=== PATIENT | female | born 1980 | race Asian ===

== ENCOUNTER 2018-10-12 09:50 | Emergency (ER) | payer OTHER ==
[~2018-10-12] VITALS: Ht 154.9 cm; Wt 81.8 kg
[~2018-10-12 09:50] MED LIST: BENZ0.5T44 PO; LEVO50 PO; LITH300C3 PO; NOCURR; RISP2TAB PO; ZIPR80CA2 PO
[2018-10-12] MEDS ORDERED: OLAN10TA3 PO (10:26)
[2018-10-12] MEDS ORDERED: LEVO1TAB PO (10:26)
[2018-10-12] MEDS ORDERED: DIVA-78 PO (10:26)
[2018-10-12] MEDS ORDERED: CHLO10 PO (10:26)
[2018-10-12] MEDS ORDERED: TRAZ-220 PO (10:26)
[2018-10-12] MEDS ORDERED: DIVA-76 PO (10:26)
[2018-10-12 10:58] LABS: BASOPHILS % (AUTO) 0.6 % (0.0-2.0); EOSINOPHILS % (AUTO) 1.1 % (1.0-6.0); HEMATOCRIT 40.5 % (36-46); HEMOGLOBIN 13.6 g/dL (12.0-16.0); LYMPHOCYTES # (AUTO) 2.6 K/uL (1.0-4.8); LYMPHOCYTES % (AUTO) 35.8 % (22.0-44.0); MEAN CORPUSCULAR HEMOGLOBIN 32.2 pg (26.0-34.0); MEAN CORPUSCULAR HGB CONC 33.7 G/dL (31.0-37.0); MEAN CORPUSCULAR VOLUME 95 fL (80-100); MONOCYTES # (AUTO) 0.7 K/uL (0.1-1.0); MONOCYTES % (AUTO) 9.2 % (2.0-9.0); NEUTROPHILS # (AUTO) 3.9 K/uL (1.8-7.7); NEUTROPHILS % (AUTO) 53.3 % (40.0-70.0); PLATELET COUNT (AUTO) 246 K/uL (150-450); RED BLOOD CELL COUNT(AUTO) 4.24 MIL/uL (4.00-5.20); RED CELL DISTRIBUTION WIDTH 13.4 % (11.5-14.5)
[2018-10-12 11:05] LABS: ANION GAP 7 mmol/L (8-16); CALCIUM, TOTAL 8.9 mg/dL (8.8-10.5); CARBON DIOXIDE 30 mmol/L (22-29); CHLORIDE 104 mmol/L (98-107); CREATININE 1.32 mg/dL (0.60-1.30); GLOMERULAR FILTR. RATE CALC 45 mL/min (>60); GLUCOSE,RANDOM 101 mg/dL (70-110); POTASSIUM 3.5 mmol/L (3.5-5.1); SODIUM SERUM 141 mmol/L (136-145); UREA NITROGEN, BLOOD 12 mg/dL (7-18)
[2018-10-12 11:16] LABS: ALANINE AMINOTRANSFERASE 34 U/L (12-78); ALBUMIN 3.5 g/dL (3.4-5.0); ALKALINE PHOSPHATASE 81 U/L (46-116); ASPARTATE AMINOTRANSFERASE 19 U/L (15-37); BILIRUBIN,TOTAL 0.2 mg/dL (0.1-1.0); HCG,QUANTITATIVE < 1 mIU/mL (0-6); LIPASE 96 U/L (73-393); TOTAL PROTEIN, SERUM 8.4 g/dL (6.4-8.2)
[2018-10-12 11:35] LABS: APPEARANCE,URINE CLOUDY (CLEAR); BILIRUBIN,URINE NEGATIVE (NEGATIVE); GLUCOSE, URINE (UA) NEGATIVE (NEGATIVE); KETONES,URINE NEGATIVE (NEGATIVE); LEUKOCYTE ESTERASE ,URINE SMALL (NEGATIVE); NITRATE,URINE POSITIVE (NEGATIVE); OCCULT BLOOD,URINE SMALL (NEGATIVE); PROTEIN,URINE NEGATIVE (NEGATIVE); UROBILINOGEN,URINE 0.2 mg/dL (<=1.0)
[2018-10-12 11:48] LABS: BACTERIA,URINE Moderate /HPF (None Seen); RBC,URINE 0-2 /HPF (0-2); SQUAMOUS EPITHELIAL CELL,UR Moderate /LPF (None Seen)
[2018-10-12] MEDS ORDERED: CEPHALEXIN MONOHYDRATE 500 MG CAPSULE PO ONE (12:00)
[2018-10-12 12:05] VITALS: BP 129/96
== END 2018-10-12 12:35 | disposition home or self-care (01) ==
LOC: EMS 09:51
DX: N39.0 Urinary tract infection, site not specified (principal)
CPT/HCPCS: 87086

== ENCOUNTER 2020-01-06 18:52 | Inpatient (IN) | payer OTHER ==
[~2020-01-06] VITALS: Ht 170.2 cm; Wt 66.6 kg
[~2020-01-06 18:52] MED LIST changes: +CHLO10 PO; +DIVA-76 PO; +DIVA-78 PO; +LEVO1TAB PO; -LITH300C3 PO; -NOCURR; +OLAN10TA3 PO; -RISP2TAB PO; +TRAZ-257 PO
[2020-01-06] MEDS ORDERED: SODIUM CHLORIDE 0.9% 2,300 ML IV ONE (19:15)
[2020-01-06] MEDS ORDERED: ACETAMINOPHEN 500 MG TABLET PO ONE (19:15)
[2020-01-06 19:30] LABS: BASOPHILS % (AUTO) 0.2 % (0.0-2.0); EOSINOPHILS % (AUTO) 0 % (1.0-6.0); HEMATOCRIT 29.2 % (36-46); LYMPHOCYTES % (AUTO) 5.1 % (22.0-44.0); MEAN CORPUSCULAR HEMOGLOBIN 33.1 pg (26.0-34.0); MEAN CORPUSCULAR HGB CONC 34.4 G/dL (31.0-37.0); MEAN CORPUSCULAR VOLUME 96 fL (80-100); MONOCYTES % (AUTO) 5.5 % (2.0-9.0); NEUTROPHILS # (AUTO) 16.8 K/uL (1.8-7.7); PLATELET COUNT (AUTO) 207 K/uL (150-450); RED BLOOD CELL COUNT(AUTO) 3.04 MIL/uL (4.00-5.20); RED CELL DISTRIBUTION WIDTH 14.3 % (11.5-14.5)
[2020-01-06 19:32] LABS: NEUTROPHILS % (AUTO) 89.2 % (40.0-70.0)
[2020-01-06 19:39] LABS: ANION GAP 1 mmol/L (8-16); CALCIUM, TOTAL 8.2 mg/dL (8.8-10.5); CARBON DIOXIDE 23 mmol/L (22-29); CHLORIDE 105 mmol/L (98-107); CREATININE 1.39 mg/dL (0.60-1.30); GLOMERULAR FILTR. RATE CALC 42 mL/min (>60); GLUCOSE,RANDOM 105 mg/dL (70-110); POTASSIUM 3.2 mmol/L (3.5-5.1); SODIUM SERUM 129 mmol/L (136-145); UREA NITROGEN, BLOOD 9 mg/dL (7-18)
[2020-01-06 19:48] LABS: LACTIC ACID 1.8 mmol/L (0.4-2.0)
[2020-01-06 19:50] LABS: B-TYPE NATRIURETIC PEPTIDE 41 pg/mL (0-100)
[2020-01-06 19:57] LABS: ALANINE AMINOTRANSFERASE 27 U/L (12-78); ALBUMIN 2.2 g/dL (3.4-5.0); ALKALINE PHOSPHATASE 72 U/L (46-116); ASPARTATE AMINOTRANSFERASE 21 U/L (15-37); BILIRUBIN,TOTAL 0.4 mg/dL (0.1-1.0); HCG,QUANTITATIVE < 1 mIU/mL (0-6); LIPASE 26 U/L (73-393); TOTAL PROTEIN, SERUM 5.8 g/dL (6.4-8.2)
[2020-01-06] MEDS ORDERED: ONDANSETRON HCL 4 MG/2 ML VIAL IVP PRN ×2 (20:00→21:45)
[2020-01-06] MEDS ORDERED: POTASSIUM CHLORIDE 10% 40 MEQ/30 ML LIQUID UDCUP PO ONE (20:00)
[2020-01-06] MEDS ORDERED: CefTRIAXone 1 GM/DEXTROSE 50 ML IV ONE (20:00)
[2020-01-06] MEDS ORDERED: ACETAMINOPHEN 325 MG TABLET PO PRN (20:00)
[2020-01-06] MEDS ORDERED: 0.9% SODIUM CHLORIDE 10 ML SYRINGE IVP PRN ×2 (20:00→21:45)
[2020-01-06 20:31] LABS: APPEARANCE,URINE CLEAR (CLEAR); BILIRUBIN,URINE NEGATIVE (NEGATIVE); GLUCOSE, URINE (UA) NEGATIVE (NEGATIVE); KETONES,URINE NEGATIVE (NEGATIVE); LEUKOCYTE ESTERASE ,URINE SMALL (NEGATIVE); NITRATE,URINE NEGATIVE (NEGATIVE); OCCULT BLOOD,URINE MODERATE (NEGATIVE); PROTEIN,URINE NEGATIVE (NEGATIVE); UROBILINOGEN,URINE 0.2 mg/dL (<=1.0)
[2020-01-06 20:48] LABS: BACTERIA,URINE None Seen /HPF (None Seen); SQUAMOUS EPITHELIAL CELL,UR Rare /LPF (None Seen)
[2020-01-06 20:55] LABS: INFLUENZA TYPE A NEGATIVE FOR TYPE A (NEGATIVE); INFLUENZA TYPE B NEGATIVE FOR TYPE B (NEGATIVE)
[2020-01-06] MEDS: TraZODone HCL 100 MG TABLET PO SCH (22:30)
[2020-01-06] MEDS: DIVALPROEX SODIUM 500 MG DR TABLET PO SCH (22:30)
[2020-01-06] MEDS: ZIPRASIDONE HCL 80 MG CAPSULE PO SCH (23:00)
[2020-01-06] MEDS: OLANZapine 10 MG TABLET PO SCH (23:00)
[2020-01-06 23:43] VITALS: BP 99/58
[2020-01-07] MEDS: SODIUM CHLORIDE 0.9% 1,000 ML IV SCH ×2 (00:07→18:36)
[2020-01-07] MEDS: HEPARIN SODIUM,PORCINE 5,000 UNITS/ML VIAL SQ SCH ×3 (00:10→16:57)
[2020-01-07 03:17] VITALS: BP 105/68
[2020-01-07 06:17] LABS: BASOPHILS % (AUTO) 0.2 % (0.0-2.0); EOSINOPHILS % (AUTO) 0.1 % (1.0-6.0); HEMATOCRIT 33.7 % (36-46); HEMOGLOBIN 11.2 g/dL (12.0-16.0); LYMPHOCYTES # (AUTO) 1.9 K/uL (1.0-4.8); LYMPHOCYTES % (AUTO) 7.5 % (22.0-44.0); MEAN CORPUSCULAR HEMOGLOBIN 32.4 pg (26.0-34.0); MEAN CORPUSCULAR HGB CONC 33.2 G/dL (31.0-37.0); MEAN CORPUSCULAR VOLUME 98 fL (80-100); MONOCYTES % (AUTO) 3.8 % (2.0-9.0); NEUTROPHILS # (AUTO) 22.8 K/uL (1.8-7.7); PLATELET COUNT (AUTO) 235 K/uL (150-450); RED BLOOD CELL COUNT(AUTO) 3.44 MIL/uL (4.00-5.20); RED CELL DISTRIBUTION WIDTH 14.5 % (11.5-14.5)
[2020-01-07 06:30] LABS: CREATININE 1.46 mg/dL (0.60-1.30); MAGNESIUM 1.8 mg/dL (1.80-2.40); POTASSIUM 4.8 mmol/L (3.5-5.1)
[2020-01-07] MEDS: LEVOTHYROXINE SODIUM 50 MCG TABLET PO SCH (06:35)
[2020-01-07 06:41] LABS: NEUTROPHILS % (AUTO) 88.4 % (40.0-70.0)
[2020-01-07 07:41] VITALS: BP 108/64
[2020-01-07] MEDS: ZIPRASIDONE HCL 80 MG CAPSULE PO SCH ×2 (08:56→18:36)
[2020-01-07] MEDS: OLANZapine 10 MG TABLET PO SCH ×2 (08:56→20:48)
[2020-01-07] MEDS: PANTOPRAZOLE SODIUM 40 MG DR TABLET PO SCH (08:56)
[2020-01-07] MEDS: ChlorproMAZINE HCL 100 MG TABLET PO SCH ×4 (08:57→20:48)
[2020-01-07] MEDS: BENZTROPINE MESYLATE 0.5 MG TABLET PO SCH (08:57)
[2020-01-07] MEDS ORDERED: [UNRECOGNIZED DRUG - OTHER] PO SCH (09:00)
[2020-01-07] MEDS: DIVALPROEX SODIUM 250 MG DR TABLET PO SCH (09:08)
[2020-01-07 11:35] VITALS: BP 125/92
[2020-01-07 15:30] VITALS: BP 109/69
[2020-01-07] MEDS: ACETAMINOPHEN 325 MG TABLET PO PRN (16:51)
[2020-01-07] MEDS: CefTRIAXone 1 GM/DEXTROSE 50 ML IV SCH (18:36)
[2020-01-07 19:23] VITALS: BP 107/74
[2020-01-07] MEDS: DIVALPROEX SODIUM 500 MG DR TABLET PO SCH (20:48)
[2020-01-07] MEDS: TraZODone HCL 100 MG TABLET PO SCH (20:48)
[2020-01-08 00:01] VITALS: BP 132/83
[2020-01-08] MEDS: SODIUM CHLORIDE 0.9% 1,000 ML IV SCH ×2 (02:21→16:46)
[2020-01-08 05:20] VITALS: BP 125/85
[2020-01-08] MEDS: LEVOTHYROXINE SODIUM 50 MCG TABLET PO SCH (06:46)
[2020-01-08 08:00] VITALS: BP 130/82
[2020-01-08] MEDS: HEPARIN SODIUM,PORCINE 5,000 UNITS/ML VIAL SQ SCH ×4 (08:39→23:53)
[2020-01-08] MEDS: BENZTROPINE MESYLATE 0.5 MG TABLET PO SCH (08:40)
[2020-01-08] MEDS: ZIPRASIDONE HCL 80 MG CAPSULE PO SCH ×2 (08:40→21:07)
[2020-01-08] MEDS: PANTOPRAZOLE SODIUM 40 MG DR TABLET PO SCH (08:40)
[2020-01-08] MEDS: DIVALPROEX SODIUM 250 MG DR TABLET PO SCH (08:40)
[2020-01-08] MEDS: OLANZapine 10 MG TABLET PO SCH ×2 (08:40→21:08)
[2020-01-08] MEDS: ChlorproMAZINE HCL 100 MG TABLET PO SCH ×4 (08:40→21:08)
[2020-01-08 12:00] VITALS: BP 134/84
[2020-01-08 12:15] LABS: BASOPHILS % (AUTO) 0.1 % (0.0-2.0); EOSINOPHILS % (AUTO) 0.4 % (1.0-6.0); HEMATOCRIT 28.2 % (36-46); HEMOGLOBIN 9.4 g/dL (12.0-16.0); LYMPHOCYTES # (AUTO) 1.4 K/uL (1.0-4.8); LYMPHOCYTES % (AUTO) 8.6 % (22.0-44.0); MEAN CORPUSCULAR HEMOGLOBIN 32.3 pg (26.0-34.0); MEAN CORPUSCULAR HGB CONC 33.2 G/dL (31.0-37.0); MEAN CORPUSCULAR VOLUME 97 fL (80-100); MONOCYTES # (AUTO) 1.5 K/uL (0.1-1.0); NEUTROPHILS # (AUTO) 13.5 K/uL (1.8-7.7); NEUTROPHILS % (AUTO) 81.9 % (40.0-70.0); PLATELET COUNT (AUTO) 194 K/uL (150-450); RED BLOOD CELL COUNT(AUTO) 2.91 MIL/uL (4.00-5.20); RED CELL DISTRIBUTION WIDTH 14.1 % (11.5-14.5)
[2020-01-08 12:26] LABS: CALCIUM, TOTAL 8.3 mg/dL (8.8-10.5); CREATININE 1.06 mg/dL (0.60-1.30); POTASSIUM 4.1 mmol/L (3.5-5.1)
[2020-01-08 12:38] LABS: BILIRUBIN,TOTAL 0.3 mg/dL (0.1-1.0); TOTAL PROTEIN, SERUM 6.2 g/dL (6.4-8.2)
[2020-01-08 16:00] VITALS: BP 118/60
[2020-01-08] MEDS: CefTRIAXone 1 GM/DEXTROSE 50 ML IV SCH (20:00)
[2020-01-08] MEDS: DIVALPROEX SODIUM 500 MG DR TABLET PO SCH (21:08)
[2020-01-08] MEDS: TraZODone HCL 100 MG TABLET PO SCH (21:08)
[2020-01-09] VITALS (7 sets, daily range): BP systolic 121–149; BP diastolic 64–98
[2020-01-09] MEDS: LEVOTHYROXINE SODIUM 50 MCG TABLET PO SCH (06:25)
[2020-01-09] MEDS: SODIUM CHLORIDE 0.9% 1,000 ML IV SCH ×2 (06:26→21:45)
[2020-01-09 07:53] LABS: BASOPHILS % (AUTO) 0.3 % (0.0-2.0); EOSINOPHILS % (AUTO) 0.8 % (1.0-6.0); HEMATOCRIT 32.4 % (36-46); HEMOGLOBIN 11.1 g/dL (12.0-16.0); LYMPHOCYTES # (AUTO) 2.4 K/uL (1.0-4.8); LYMPHOCYTES % (AUTO) 17.7 % (22.0-44.0); MEAN CORPUSCULAR HGB CONC 34.1 G/dL (31.0-37.0); MEAN CORPUSCULAR VOLUME 97 fL (80-100); MONOCYTES # (AUTO) 0.9 K/uL (0.1-1.0); MONOCYTES % (AUTO) 6.7 % (2.0-9.0); NEUTROPHILS # (AUTO) 10.2 K/uL (1.8-7.7); NEUTROPHILS % (AUTO) 74.5 % (40.0-70.0); PLATELET COUNT (AUTO) 259 K/uL (150-450); RED BLOOD CELL COUNT(AUTO) 3.36 MIL/uL (4.00-5.20); RED CELL DISTRIBUTION WIDTH 14.5 % (11.5-14.5)
[2020-01-09 08:12] LABS: CALCIUM, TOTAL 8.8 mg/dL (8.8-10.5); CREATININE 1.09 mg/dL (0.60-1.30); MAGNESIUM 1.8 mg/dL (1.80-2.40); POTASSIUM 4.2 mmol/L (3.5-5.1)
[2020-01-09] MEDS: HEPARIN SODIUM,PORCINE 5,000 UNITS/ML VIAL SQ SCH ×2 (08:32→15:52)
[2020-01-09] MEDS: BENZTROPINE MESYLATE 0.5 MG TABLET PO SCH (08:32)
[2020-01-09] MEDS: DIVALPROEX SODIUM 250 MG DR TABLET PO SCH (08:33)
[2020-01-09] MEDS: ChlorproMAZINE HCL 100 MG TABLET PO SCH ×4 (08:33→21:44)
[2020-01-09] MEDS: ACETAMINOPHEN 325 MG TABLET PO PRN (08:33)
[2020-01-09] MEDS: PANTOPRAZOLE SODIUM 40 MG DR TABLET PO SCH (08:33)
[2020-01-09] MEDS: OLANZapine 10 MG TABLET PO SCH ×2 (08:33→21:44)
[2020-01-09] MEDS: ZIPRASIDONE HCL 80 MG CAPSULE PO SCH ×2 (08:33→18:12)
[2020-01-09] MEDS: CefTRIAXone 1 GM/DEXTROSE 50 ML IV SCH (12:14)
[2020-01-09] MEDS: TraZODone HCL 100 MG TABLET PO SCH (21:44)
[2020-01-09] MEDS: DIVALPROEX SODIUM 500 MG DR TABLET PO SCH (21:46)
[2020-01-10] MEDS: HEPARIN SODIUM,PORCINE 5,000 UNITS/ML VIAL SQ SCH ×2 (02:31→08:00)
[2020-01-10 03:58] VITALS: BP 104/54
[2020-01-10] MEDS: LEVOTHYROXINE SODIUM 50 MCG TABLET PO SCH (05:56)
[2020-01-10 07:52] VITALS: BP 114/79
[2020-01-10 11:25] VITALS: BP 114/86
[2020-01-10] MEDS: SODIUM CHLORIDE 0.9% 1,000 ML IV SCH (11:33)
[2020-01-10] MEDS: OLANZapine 10 MG TABLET PO SCH (11:34)
[2020-01-10] MEDS: ZIPRASIDONE HCL 80 MG CAPSULE PO SCH (11:34)
[2020-01-10] MEDS: ChlorproMAZINE HCL 100 MG TABLET PO SCH ×2 (11:35→13:00)
[2020-01-10] MEDS: DIVALPROEX SODIUM 250 MG DR TABLET PO SCH (11:35)
[2020-01-10] MEDS: PANTOPRAZOLE SODIUM 40 MG DR TABLET PO SCH (11:36)
[2020-01-10] MEDS: BENZTROPINE MESYLATE 0.5 MG TABLET PO SCH (11:36)
[2020-01-10] MEDS: CefTRIAXone 1 GM/DEXTROSE 50 ML IV SCH (12:00)
[2020-01-10] MEDS ORDERED: LEVO-72 PO (13:07)
== END 2020-01-10 14:53 | disposition home or self-care (01) | DRG 720 ==
LOC: EMS 18:53 → 5S 20:00 → 6N 20:00 → UNDOADMIN 20:00 → 5S 01-10 10:59
PROVIDERS: ADMIT Internal Medicine; ATTEND Internal Medicine
DX: A41.9 Sepsis, unspecified organism (principal); N17.9 Acute kidney failure, unspecified; E44.0 Moderate protein-calorie malnutrition; E66.01 Morbid (severe) obesity due to excess calories; F79 Unspecified intellectual disabilities; E86.0 Dehydration; E87.6 Hypokalemia; N39.0 Urinary tract infection, site not specified; Z68.23 Body mass index [BMI] 23.0-23.9, adult; Z87.440 Personal history of urinary (tract) infections
CPT/HCPCS: 51702; 76770; 83605; 83735; 87040; 87086; 87205; 87804; 92610; 93005; 99291; J0696; J1644; J7030

== ENCOUNTER 2021-06-30 09:53 | Inpatient (IN) | payer OTHER ==
[~2021-06-30] VITALS: Ht 152.4 cm; Wt 66.4 kg
[~2021-06-30 09:53] MED LIST changes: -CHLO10 PO; +CHLO10TA14 PO; +DIVA-111 PO; +DIVA-112 PO; -DIVA-76 PO; -DIVA-78 PO; +LEVO-72 PO; -OLAN10TA3 PO; +OLAN10TA74 PO
[2021-06-30] MEDS ORDERED: SODIUM CHLORIDE 0.9% 2,000 ML IV ONE (10:15)
[2021-06-30] MEDS ORDERED: 0.9% SODIUM CHLORIDE 10 ML SYRINGE IVP PRN ×2 (10:15→13:45)
[2021-06-30] MEDS ORDERED: ACETAMINOPHEN 1000 MG/ISO-OSM 100 ML IV ONE (10:15)
[2021-06-30 10:37] LABS: COVID AG,FIA SOURCE NASOPHARYNGEAL
[2021-06-30 10:41] LABS: BASOPHILS % (AUTO) 0.6 % (0.0-2.0); EOSINOPHILS % (AUTO) 0 % (1.0-6.0); HEMATOCRIT 35.7 % (36-46); HEMOGLOBIN 11.9 g/dL (12.0-16.0); LYMPHOCYTES # (AUTO) 1.8 K/uL (1.0-4.8); LYMPHOCYTES % (AUTO) 7.1 % (22.0-44.0); MEAN CORPUSCULAR HEMOGLOBIN 32.6 pg (26.0-34.0); MEAN CORPUSCULAR HGB CONC 33.4 G/dL (31.0-37.0); MEAN CORPUSCULAR VOLUME 98 fL (80-100); MONOCYTES # (AUTO) 2.8 K/uL (0.1-1.0); MONOCYTES % (AUTO) 11.1 % (2.0-9.0); NEUTROPHILS # (AUTO) 20.4 K/uL (1.8-7.7); NEUTROPHILS % (AUTO) 81.2 % (40.0-70.0); PLATELET COUNT (AUTO) 207 K/uL (150-450); RED BLOOD CELL COUNT(AUTO) 3.66 MIL/uL (4.00-5.20); RED CELL DISTRIBUTION WIDTH 13.5 % (11.5-14.5)
[2021-06-30 10:52] LABS: ANION GAP 10 mmol/L (8-16); CALCIUM, TOTAL 8.7 mg/dL (8.8-10.5); CARBON DIOXIDE 24 mmol/L (22-29); CHLORIDE 104 mmol/L (98-107); CREATININE 1.45 mg/dL (0.60-1.30); GLOMERULAR FILTR. RATE CALC 40 mL/min (>60); GLUCOSE,RANDOM 119 mg/dL (70-110); POTASSIUM 3.9 mmol/L (3.5-5.1); SODIUM SERUM 138 mmol/L (136-145); UREA NITROGEN, BLOOD 11 mg/dL (7-18)
[2021-06-30 10:53] LABS: D-DIMER 1.36 mg/L FEU (0.00-0.50)
[2021-06-30 11:06] LABS: ALANINE AMINOTRANSFERASE 71 U/L (12-78); ALBUMIN 2.8 g/dL (3.4-5.0); ALKALINE PHOSPHATASE 90 U/L (46-116); ASPARTATE AMINOTRANSFERASE 38 U/L (15-37); BILIRUBIN,TOTAL 0.4 mg/dL (0.1-1.0); CREATINE KINASE, TOTAL ONLY 47 U/L (26-192); HCG,QUANTITATIVE < 1 mIU/mL (0-6); TOTAL PROTEIN, SERUM 7.8 g/dL (6.4-8.2)
[2021-06-30 11:11] LABS: B-TYPE NATRIURETIC PEPTIDE 56 pg/mL (0-100)
[2021-06-30 11:20] LABS: INFLUENZA TYPE A NEGATIVE FOR TYPE A (NEGATIVE); INFLUENZA TYPE B NEGATIVE FOR TYPE B (NEGATIVE)
[2021-06-30 11:24] LABS: LACTIC ACID 2.3 mmol/L (0.4-2.0)
[2021-06-30] MEDS ORDERED: AZITHROMYCIN 500 MG/NS 250 ML IV ONE (11:30)
[2021-06-30] MEDS ORDERED: CefTRIAXone 1 GM/DEXTROSE 50 ML IV ONE (11:30)
[2021-06-30 12:29] LABS: APPEARANCE,URINE CLOUDY (CLEAR); BILIRUBIN,URINE NEGATIVE (NEGATIVE); GLUCOSE, URINE (UA) NEGATIVE (NEGATIVE); KETONES,URINE NEGATIVE (NEGATIVE); LEUKOCYTE ESTERASE ,URINE SMALL (NEGATIVE); NITRATE,URINE NEGATIVE (NEGATIVE); OCCULT BLOOD,URINE MODERATE (NEGATIVE); PH,URINE 6.5 (5.0-8.0); PROTEIN,URINE NEGATIVE (NEGATIVE); UROBILINOGEN,URINE 0.2 mg/dL (<=1.0)
[2021-06-30 12:37] LABS: BACTERIA,URINE None Seen /HPF (None Seen); SQUAMOUS EPITHELIAL CELL,UR Few /LPF (None Seen)
[2021-06-30 14:09] LABS: FREE T4 (FREE THYROXINE) 0.98 ng/dL (0.76-1.46); THYROID STIMULATING HORMONE 0.75 uIU/mL (0.36-3.74)
[2021-06-30 14:20] VITALS: BP 86/48
[2021-06-30] MEDS ORDERED: SODIUM CHLORIDE 0.9% 250 ML IV ONE ×2 (14:45→15:45)
[2021-06-30 15:43] VITALS: BP 131/79
[2021-06-30] MEDS ORDERED: ONDANSETRON HCL 4 MG/2 ML VIAL IVP PRN (16:00)
[2021-06-30] MEDS ORDERED: IPRATROPIUM BROMIDE 0.5 MG/2.5 ML NEB SOLUTION NEB PRN (16:00)
[2021-06-30] MEDS ORDERED: MAGNESIUM HYDROXIDE SUSPENSION 30 ML UDCUP PO PRN (16:00)
[2021-06-30] MEDS ORDERED: ALBUTEROL SULFATE 2.5 MG/0.5 ML NEB SOLUTION NEB PRN (16:00)
[2021-06-30] MEDS ORDERED: BISACODYL 10 MG RECTAL RECTAL SUPPOSITORY PR PRN (16:00)
[2021-06-30] MEDS ORDERED: HYDROCODONE/ACETAMINOPHEN 5-325 MG TABLET PO PRN (16:00)
[2021-06-30] MEDS: HEPARIN SODIUM,PORCINE 5,000 UNITS/ML VIAL SQ SCH (16:00)
[2021-06-30] MEDS ORDERED: ACETAMINOPHEN 325 MG TABLET PO PRN (16:00)
[2021-06-30] MEDS ORDERED: ZOLPIDEM TARTRATE 5 MG TABLET PO PRN (16:00)
[2021-06-30] MEDS: SODIUM CHLORIDE 0.9% 1,000 ML IV SCH (17:25)
[2021-06-30 19:18] VITALS: BP 100/61
[2021-06-30] MEDS: MORPHINE SULFATE 2 MG/ML SYRINGE IVP PRN (20:24)
[2021-06-30] MEDS: DOCUSATE SODIUM 100 MG CAPSULE PO SCH (20:24)
[2021-06-30 23:00] VITALS: BP 112/64
[2021-07-01] MEDS: MORPHINE SULFATE 2 MG/ML SYRINGE IVP PRN (03:34)
[2021-07-01 04:58] VITALS: BP 140/71
[2021-07-01] MEDS: SODIUM CHLORIDE 0.9% 1,000 ML IV SCH ×2 (05:42→22:14)
[2021-07-01 08:00] VITALS: BP 121/85
[2021-07-01] MEDS: HEPARIN SODIUM,PORCINE 5,000 UNITS/ML VIAL SQ SCH ×4 (08:00→23:38)
[2021-07-01 08:26] LABS: HEMATOCRIT 36.9 % (36-46); HEMOGLOBIN 11.9 g/dL (12.0-16.0); MEAN CORPUSCULAR HGB CONC 32.3 G/dL (31.0-37.0); MEAN CORPUSCULAR VOLUME 99 fL (80-100); PLATELET COUNT (AUTO) 186 K/uL (150-450); RED BLOOD CELL COUNT(AUTO) 3.72 MIL/uL (4.00-5.20)
[2021-07-01 08:59] LABS: ALANINE AMINOTRANSFERASE 54 U/L (12-78); ALBUMIN 2.4 g/dL (3.4-5.0); ALKALINE PHOSPHATASE 104 U/L (46-116); ANION GAP 11 mmol/L (8-16); ASPARTATE AMINOTRANSFERASE 35 U/L (15-37); BILIRUBIN,TOTAL 0.5 mg/dL (0.1-1.0); CALCIUM, TOTAL 8.1 mg/dL (8.8-10.5); CARBON DIOXIDE 22 mmol/L (22-29); CHLORIDE 110 mmol/L (98-107); CREATININE 1.01 mg/dL (0.60-1.30); GLOMERULAR FILTR. RATE CALC > 60 mL/min (>60); GLUCOSE,RANDOM 88 mg/dL (70-110); POTASSIUM 3.9 mmol/L (3.5-5.1); SODIUM SERUM 143 mmol/L (136-145); TOTAL PROTEIN, SERUM 7.1 g/dL (6.4-8.2); UREA NITROGEN, BLOOD 9 mg/dL (7-18)
[2021-07-01] MEDS: DOCUSATE SODIUM 100 MG CAPSULE PO SCH ×2 (09:00→19:38)
[2021-07-01 10:12] LABS: BAND NEUTROPHILS % (MANUAL) 7 % (0-5); LYMPHOCYTES % (MANUAL) 7 % (22-44); MONOCYTES % (MANUAL) 12 % (2-9); SEGMENTED NEUTROPHILS % 74 % (40-70)
[2021-07-01 12:14] VITALS: BP 112/72
[2021-07-01] MEDS: CefTRIAXone 1 GM/DEXTROSE 50 ML IV SCH (13:13)
[2021-07-01] MEDS: AZITHROMYCIN 500 MG/NS 250 ML IV SCH (14:31)
[2021-07-01] MEDS ORDERED: DOCU-270 PO (15:07)
[2021-07-01] MEDS ORDERED: CHLO100T31 PO (15:07)
[2021-07-01] MEDS ORDERED: LACT1TAB20 PO (15:07)
[2021-07-01] MEDS ORDERED: LABE100T51 PO (15:07)
[2021-07-01] MEDS ORDERED: LEVO1TAB PO (15:07)
[2021-07-01] MEDS ORDERED: CRAN500T3 PO (15:07)
[2021-07-01 16:01] VITALS: BP 114/78
[2021-07-01] MEDS ORDERED: BENZ1TAB10 PO (18:44)
[2021-07-01] MEDS ORDERED: LEVO25TA9 PO (18:44)
[2021-07-01] MEDS ORDERED: DOCU-350 PO (18:44)
[2021-07-01] MEDS ORDERED: ZIPR40CA2 PO (18:44)
[2021-07-01 20:12] VITALS: BP 123/92
[2021-07-01] MEDS: OLANZapine 10 MG TABLET PO SCH (22:10)
[2021-07-01] MEDS: TraZODone HCL 100 MG TABLET PO SCH (22:10)
[2021-07-01] MEDS: ZIPRASIDONE HCL 40 MG CAPSULE PO SCH (22:10)
[2021-07-02 00:51] VITALS: BP 127/87
[2021-07-02 04:24] VITALS: BP 135/91
[2021-07-02 05:19] LABS: BASOPHILS % (AUTO) 0.1 % (0.0-2.0); EOSINOPHILS % (AUTO) 0.4 % (1.0-6.0); HEMOGLOBIN 10.8 g/dL (12.0-16.0); LYMPHOCYTES # (AUTO) 1.7 K/uL (1.0-4.8); LYMPHOCYTES % (AUTO) 8.3 % (22.0-44.0); MEAN CORPUSCULAR HEMOGLOBIN 32.6 pg (26.0-34.0); MEAN CORPUSCULAR HGB CONC 32.8 G/dL (31.0-37.0); MEAN CORPUSCULAR VOLUME 100 fL (80-100); MONOCYTES # (AUTO) 1.4 K/uL (0.1-1.0); MONOCYTES % (AUTO) 6.9 % (2.0-9.0); NEUTROPHILS # (AUTO) 16.9 K/uL (1.8-7.7); NEUTROPHILS % (AUTO) 84.3 % (40.0-70.0); PLATELET COUNT (AUTO) 171 K/uL (150-450); RED BLOOD CELL COUNT(AUTO) 3.31 MIL/uL (4.00-5.20)
[2021-07-02 05:52] LABS: ALANINE AMINOTRANSFERASE 41 U/L (12-78); ALBUMIN 2.1 g/dL (3.4-5.0); ALKALINE PHOSPHATASE 96 U/L (46-116); ANION GAP 13 mmol/L (8-16); ASPARTATE AMINOTRANSFERASE 17 U/L (15-37); BILIRUBIN,TOTAL 0.2 mg/dL (0.1-1.0); CALCIUM, TOTAL 8.3 mg/dL (8.8-10.5); CARBON DIOXIDE 20 mmol/L (22-29); CHLORIDE 114 mmol/L (98-107); GLOMERULAR FILTR. RATE CALC > 60 mL/min (>60); GLUCOSE,RANDOM 197 mg/dL (70-110); POTASSIUM 4.1 mmol/L (3.5-5.1); SODIUM SERUM 147 mmol/L (136-145); TOTAL PROTEIN, SERUM 6.6 g/dL (6.4-8.2); UREA NITROGEN, BLOOD 7 mg/dL (7-18)
[2021-07-02] MEDS: DOCUSATE SODIUM 100 MG CAPSULE PO SCH ×2 (08:15→21:07)
[2021-07-02] MEDS: ZIPRASIDONE HCL 40 MG CAPSULE PO SCH ×2 (08:15→18:08)
[2021-07-02] MEDS: HEPARIN SODIUM,PORCINE 5,000 UNITS/ML VIAL SQ SCH ×2 (08:15→16:00)
[2021-07-02] MEDS: OLANZapine 10 MG TABLET PO SCH ×2 (08:16→21:07)
[2021-07-02 08:24] VITALS: BP 142/93
[2021-07-02 12:34] VITALS: BP 132/93
[2021-07-02] MEDS: CefTRIAXone 1 GM/DEXTROSE 50 ML IV SCH (13:09)
[2021-07-02] MEDS: DEXTROSE 5%-WATER 1,000 ML IV SCH ×2 (13:09→21:09)
[2021-07-02] MEDS: AZITHROMYCIN 500 MG/NS 250 ML IV SCH (15:26)
[2021-07-02 15:52] VITALS: BP 119/86
[2021-07-02 20:40] VITALS: BP 148/100
[2021-07-02] MEDS ORDERED: DIVALPROEX SODIUM 500 MG DR TABLET PO SCH (21:00)
[2021-07-02] MEDS ORDERED: ChlorproMAZINE HCL 100 MG TABLET PO SCH (21:00)
[2021-07-02] MEDS ORDERED: BENZTROPINE MESYLATE 1 MG TABLET PO SCH (21:00)
[2021-07-02] MEDS ORDERED: OLANZapine 10 MG TABLET PO SCH (21:00)
[2021-07-02] MEDS ORDERED: TraZODone HCL 100 MG TABLET PO SCH (21:00)
[2021-07-02] MEDS ORDERED: LABETALOL HCL 100 MG TABLET PO SCH (21:00)
[2021-07-02] MEDS: TraZODone HCL 100 MG TABLET PO SCH (21:07)
[2021-07-03 00:17] VITALS: BP 146/104
[2021-07-03] MEDS: HEPARIN SODIUM,PORCINE 5,000 UNITS/ML VIAL SQ SCH ×2 (01:33→08:49)
[2021-07-03 05:07] VITALS: BP 140/89
[2021-07-03] MEDS ORDERED: LEVOTHYROXINE SODIUM 25 MCG TABLET PO SCH (06:30)
[2021-07-03 06:43] LABS: BASOPHILS % (AUTO) 0.8 % (0.0-2.0); EOSINOPHILS % (AUTO) 1.2 % (1.0-6.0); HEMATOCRIT 34.1 % (36-46); HEMOGLOBIN 11.2 g/dL (12.0-16.0); LYMPHOCYTES # (AUTO) 1.7 K/uL (1.0-4.8); LYMPHOCYTES % (AUTO) 12.6 % (22.0-44.0); MEAN CORPUSCULAR HEMOGLOBIN 32.5 pg (26.0-34.0); MEAN CORPUSCULAR HGB CONC 32.9 G/dL (31.0-37.0); MEAN CORPUSCULAR VOLUME 99 fL (80-100); MONOCYTES # (AUTO) 1.1 K/uL (0.1-1.0); MONOCYTES % (AUTO) 7.9 % (2.0-9.0); NEUTROPHILS # (AUTO) 10.3 K/uL (1.8-7.7); NEUTROPHILS % (AUTO) 77.5 % (40.0-70.0); PLATELET COUNT (AUTO) 224 K/uL (150-450); RED BLOOD CELL COUNT(AUTO) 3.45 MIL/uL (4.00-5.20); RED CELL DISTRIBUTION WIDTH 13.7 % (11.5-14.5)
[2021-07-03 07:09] LABS: ALANINE AMINOTRANSFERASE 80 U/L (12-78); ALBUMIN 2.1 g/dL (3.4-5.0); ALKALINE PHOSPHATASE 125 U/L (46-116); ANION GAP 9 mmol/L (8-16); ASPARTATE AMINOTRANSFERASE 47 U/L (15-37); BILIRUBIN,TOTAL 0.3 mg/dL (0.1-1.0); CALCIUM, TOTAL 8.9 mg/dL (8.8-10.5); CARBON DIOXIDE 24 mmol/L (22-29); CHLORIDE 112 mmol/L (98-107); GLOMERULAR FILTR. RATE CALC > 60 mL/min (>60); GLUCOSE,RANDOM 122 mg/dL (70-110); SODIUM SERUM 145 mmol/L (136-145); TOTAL PROTEIN, SERUM 6.9 g/dL (6.4-8.2); UREA NITROGEN, BLOOD 8 mg/dL (7-18)
[2021-07-03 08:00] VITALS: BP 141/87
[2021-07-03] MEDS: OLANZapine 10 MG TABLET PO SCH (08:49)
[2021-07-03] MEDS: ZIPRASIDONE HCL 40 MG CAPSULE PO SCH (08:49)
[2021-07-03] MEDS: DOCUSATE SODIUM 100 MG CAPSULE PO SCH (08:49)
[2021-07-03] MEDS ORDERED: DOCUSATE SODIUM 250 MG CAPSULE PO SCH (09:00)
[2021-07-03] MEDS ORDERED: DIVALPROEX SODIUM 250 MG DR TABLET PO SCH (09:00)
[2021-07-03] MEDS ORDERED: AMOX1TAB16 PO (10:32)
[2021-07-03] MEDS: DEXTROSE 5%-WATER 1,000 ML IV SCH (11:53)
[2021-07-03 12:00] VITALS: BP 137/83
[2021-07-03] MEDS: CefTRIAXone 1 GM/DEXTROSE 50 ML IV SCH (12:00)
[2021-07-03] MEDS: AZITHROMYCIN 500 MG/NS 250 ML IV SCH (13:06)
== END 2021-07-03 16:05 | disposition home or self-care (01) | DRG 720 ==
LOC: EMS 09:53 → 5N 13:02 → 6N 07-02 17:05
PROVIDERS: ADMIT Hospitalist; ATTEND Hospitalist
DX: A41.9 Sepsis, unspecified organism (principal); E87.0 Hyperosmolality and hypernatremia; F25.9 Schizoaffective disorder, unspecified; F79 Unspecified intellectual disabilities; N39.0 Urinary tract infection, site not specified; D64.9 Anemia, unspecified; Z78.1 Physical restraint status; Z20.822 Contact with and (suspected) exposure to COVID-19
CPT/HCPCS: 51702; 71045; 80053; 80164; 81001; 82550; 83605; 83615; 83880; 84145; 84439; 84443; 84484; 84702; 85025; 85379; 85610; 85730; 87040; 87077; 87081; 87086; 87186; 87804; 93005; 99291; J0131; J0456; J0696; J1644; J2270; J7030; J7050; J7060; 36415-L1; 36415-TC; U0003

== ENCOUNTER 2021-07-03 16:11 | Emergency (ER) | payer OTHER ==
[~2021-07-03] VITALS: Ht 154.9 cm; Wt 72.7 kg
[~2021-07-03 16:11] MED LIST changes: +AMOX1TAB16 PO; -BENZ0.5T44 PO; +BENZ1TAB10 PO; +CHLO100T31 PO; -CHLO10TA14 PO; +CRAN500T3 PO; +DOCU-350 PO; +LABE100T51 PO; +LACT1TAB20 PO; -LEVO-72 PO; +LEVO25TA9 PO; -LEVO50 PO; +ZIPR40CA2 PO; -ZIPR80CA2 PO
[2021-07-03] MEDS ORDERED: SODIUM CHLORIDE 0.9% 2,200 ML IV ONE (19:45)
[2021-07-03 20:04] LABS: BASOPHILS % (AUTO) 0.4 % (0.0-2.0); EOSINOPHILS % (AUTO) 1.5 % (1.0-6.0); HEMATOCRIT 33.2 % (36-46); HEMOGLOBIN 11.2 g/dL (12.0-16.0); LYMPHOCYTES % (AUTO) 18.5 % (22.0-44.0); MEAN CORPUSCULAR HEMOGLOBIN 32.8 pg (26.0-34.0); MEAN CORPUSCULAR HGB CONC 33.9 G/dL (31.0-37.0); MEAN CORPUSCULAR VOLUME 97 fL (80-100); MONOCYTES % (AUTO) 9.4 % (2.0-9.0); NEUTROPHILS # (AUTO) 7.8 K/uL (1.8-7.7); NEUTROPHILS % (AUTO) 70.2 % (40.0-70.0); PLATELET COUNT (AUTO) 267 K/uL (150-450); RED BLOOD CELL COUNT(AUTO) 3.43 MIL/uL (4.00-5.20); RED CELL DISTRIBUTION WIDTH 13.4 % (11.5-14.5)
[2021-07-03] MEDS ORDERED: CefTRIAXone 1 GM/DEXTROSE 50 ML IV ONE (20:15)
[2021-07-03 20:19] LABS: ANION GAP 8 mmol/L (8-16); CARBON DIOXIDE 26 mmol/L (22-29); CHLORIDE 108 mmol/L (98-107); CREATININE 0.85 mg/dL (0.60-1.30); GLOMERULAR FILTR. RATE CALC > 60 mL/min (>60); GLUCOSE,RANDOM 107 mg/dL (70-110); POTASSIUM 3.9 mmol/L (3.5-5.1); SODIUM SERUM 142 mmol/L (136-145); UREA NITROGEN, BLOOD 8 mg/dL (7-18)
[2021-07-03 20:28] LABS: LACTIC ACID 1.4 mmol/L (0.4-2.0)
[2021-07-03] MEDS ORDERED: MORPHINE SULFATE 4 MG/ML SYRINGE IVP ONE (20:30)
[2021-07-03 20:38] LABS: ALANINE AMINOTRANSFERASE 94 U/L (12-78); ALBUMIN 2.2 g/dL (3.4-5.0); ALKALINE PHOSPHATASE 120 U/L (46-116); ASPARTATE AMINOTRANSFERASE 40 U/L (15-37); BILIRUBIN,TOTAL 0.3 mg/dL (0.1-1.0); LIPASE 50 U/L (73-393); TOTAL PROTEIN, SERUM 7.3 g/dL (6.4-8.2)
[2021-07-03] MEDS ORDERED: SODIUM CHLORIDE 0.9% 100 ML ONE (20:47)
[2021-07-03] MEDS ORDERED: IOHEXOL 350 MG/ML 100 ML VIAL ONE (20:47)
[2021-07-03 21:08] LABS: COVID AG,FIA SOURCE NASOPHARYNGEAL
[2021-07-03 21:12] LABS: FREE T4 (FREE THYROXINE) 1.15 ng/dL (0.76-1.46); HCG,QUANTITATIVE < 1 mIU/mL (0-6); THYROID STIMULATING HORMONE 1.82 uIU/mL (0.36-3.74)
[2021-07-03 21:13] LABS: VALPROIC ACID < 3 mcg/mL (50-100)
[2021-07-03] MEDS ORDERED: ACETAMINOPHEN 500 MG TABLET PO ONE (21:45)
[2021-07-03 23:14] VITALS: BP 125/88
== END 2021-07-03 23:30 | disposition home or self-care (01) ==
LOC: EMS 17:08
DX: N39.0 Urinary tract infection, site not specified (principal); F79 Unspecified intellectual disabilities; Z20.822 Contact with and (suspected) exposure to COVID-19; Z79.899 Other long term (current) drug therapy
CPT/HCPCS: 36415; 71045; 74177; 80053; 80164; 83605; 83690; 84439; 84443; 84702; 85025; 87040; 87426; 96365; 96375; 99285; A9575; J0696; J2270; J7030; J7050; U0003

== ENCOUNTER 2022-04-30 16:21 | Emergency (ER) | payer OTHER ==
[~2022-04-30] VITALS: Ht 154.9 cm; Wt 72.7 kg
[~2022-04-30 16:21] MED LIST changes: -BENZ1TAB10 PO; +BENZ1TAB96 PO; -CHLO100T31 PO; +CHLO100T42 PO; -CRAN500T3 PO; +CRAN500T4 PO
[2022-04-30] MEDS ORDERED: SODIUM CHLORIDE 0.9% 1,000 ML IV ONE (18:15)
[2022-04-30] MEDS ORDERED: ACETAMINOPHEN 500 MG TABLET PO ONE (18:15)
[2022-04-30 18:49] LABS: BASOPHILS % (AUTO) 0.2 % (0.0-2.0); EOSINOPHILS % (AUTO) 0.1 % (1.0-6.0); HEMATOCRIT 37.2 % (36-46); HEMOGLOBIN 12.4 g/dL (12.0-16.0); LYMPHOCYTES # (AUTO) 1.1 K/uL (1.0-4.8); LYMPHOCYTES % (AUTO) 10.1 % (22.0-44.0); MEAN CORPUSCULAR HEMOGLOBIN 31.9 pg (26.0-34.0); MEAN CORPUSCULAR HGB CONC 33.4 G/dL (31.0-37.0); MEAN CORPUSCULAR VOLUME 96 fL (80-100); MONOCYTES # (AUTO) 1.9 K/uL (0.1-1.0); MONOCYTES % (AUTO) 16.9 % (2.0-9.0); NEUTROPHILS # (AUTO) 8.2 K/uL (1.8-7.7); NEUTROPHILS % (AUTO) 72.7 % (40.0-70.0); PLATELET COUNT (AUTO) 192 K/uL (150-450); RED BLOOD CELL COUNT(AUTO) 3.89 MIL/uL (4.00-5.20); RED CELL DISTRIBUTION WIDTH 13.3 % (11.5-14.5)
[2022-04-30 18:57] LABS: CALCIUM, TOTAL 9.5 mg/dL (8.8-10.5); CREATININE 1.21 mg/dL (0.60-1.30); POTASSIUM 4.1 mmol/L (3.5-5.1)
[2022-04-30 19:03] LABS: BILIRUBIN,TOTAL 0.3 mg/dL (0.1-1.0); TOTAL PROTEIN, SERUM 8.2 g/dL (6.4-8.2)
[2022-04-30 19:06] LABS: LACTIC ACID 0.9 mmol/L (0.4-2.0)
[2022-04-30 19:16] LABS: COVID AG,FIA SOURCE NASOPHARYNGEAL
[2022-04-30 19:39] LABS: INFLUENZA TYPE A NEGATIVE FOR TYPE A (NEGATIVE); INFLUENZA TYPE B NEGATIVE FOR TYPE B (NEGATIVE)
[2022-04-30 19:52] LABS: APPEARANCE,URINE CLEAR (CLEAR); BILIRUBIN,URINE NEGATIVE (NEGATIVE); GLUCOSE, URINE (UA) NEGATIVE (NEGATIVE); KETONES,URINE NEGATIVE (NEGATIVE); LEUKOCYTE ESTERASE ,URINE NEGATIVE (NEGATIVE); NITRATE,URINE NEGATIVE (NEGATIVE); OCCULT BLOOD,URINE TRACE (NEGATIVE); PROTEIN,URINE NEGATIVE (NEGATIVE); SPECIFIC GRAVITIY, URINE 1.004 (1.003-1.030); UROBILINOGEN,URINE <=1.0 mg/dL (<=1.0)
[2022-04-30 20:02] LABS: BACTERIA,URINE None Seen /HPF (None Seen); RBC,URINE 0-2 /HPF (0-2); SQUAMOUS EPITHELIAL CELL,UR None Seen /LPF (None Seen); WBC,URINE 0-2 /HPF (0-5)
[2022-04-30 20:22] VITALS: BP 122/81
== END 2022-04-30 23:16 | disposition home or self-care (01) ==
LOC: EMS 16:23
DX: R50.9 Fever, unspecified (principal); F20.9 Schizophrenia, unspecified; Z79.899 Other long term (current) drug therapy; Z20.822 Contact with and (suspected) exposure to COVID-19
CPT/HCPCS: 36415; 71045; 80053; 81001; 83605; 85025; 87426; 87804; 99284; J7030; 51701

== ENCOUNTER 2025-08-10 16:30 | Emergency (ER) | payer OTHER ==
[~2025-08-10] VITALS: Ht 160 cm; Wt 70.0 kg
[~2025-08-10 16:30] MED LIST changes: +AMOX-457 PO; -AMOX1TAB16 PO; +BENZ-247 PO; -BENZ1TAB96 PO; -CRAN500T4 PO; +CRAN500T7 PO; -DOCU-350 PO; +DOCU-412 PO; -ZIPR40CA2 PO; +ZIPR40CA38 PO
[2025-08-10 18:01] VITALS: BP 128/79; PULSE 91; RESP 18; TEMP 98.8; O2SAT 96
[2025-08-10 19:32] LABS: COVID AG,FIA SOURCE NASAL SWAB
[2025-08-10 19:39] LABS: APPEARANCE,URINE CLEAR (CLEAR); GLUCOSE, URINE (UA) NEGATIVE (NEGATIVE); LEUKOCYTE ESTERASE ,URINE NEGATIVE (NEGATIVE); NITRATE,URINE NEGATIVE (NEGATIVE); OCCULT BLOOD,URINE NEGATIVE (NEGATIVE); SPECIFIC GRAVITIY, URINE 1.005 (1.003-1.030)
[2025-08-10 19:57] LABS: SARS-COV2 (COVID) ANTIGEN,FIA Negative (Negative)
[2025-08-10 19:58] LABS: INFLUENZA TYPE A NEGATIVE FOR TYPE A (NEGATIVE); INFLUENZA TYPE B NEGATIVE FOR TYPE B (NEGATIVE)
== END 2025-08-11 02:28 | disposition home or self-care (01) ==
LOC: EMS 16:30
DX: R50.9 Fever, unspecified (principal); J02.9 Acute pharyngitis, unspecified; E03.9 Hypothyroidism, unspecified; F20.9 Schizophrenia, unspecified; I10 Essential (primary) hypertension; Z79.3 Long term (current) use of hormonal contraceptives; Z79.899 Other long term (current) drug therapy; Z20.822 Contact with and (suspected) exposure to COVID-19
CPT/HCPCS: 81003; 87430; 87804; 99283